=== PATIENT | female | born 1970 ===

== ENCOUNTER 2018-12-31 14:30 | Outpatient (CLI) | payer OTHER ==
--- NOTE | 2018-12-31 15:40 | MMO ---
Bilateral MAMMO Bilat Diag [facility]DI+ION. CLINICAL HISTORY: Patient is 48 years old and is seen for diagnostic exam and palpable abnormality in the left breast. The patient has the following family history of breast cancer: paternal grandmother, at age 45. The patient has no personal history of cancer. VIEWS: The views performed were: bilateral craniocaudal with tomosynthesis; bilateral mediolateral oblique with tomosynthesis; and bilateral mediolateral. FILMS COMPARED: The present examination has been compared to prior imaging studies performed at [facility] on 10/30/2005, 01/03/2007, 01/07/2007, 07/29/2009, 10/18/2010, 12/11/2011, 01/28/2013, 05/04/2016, 12/04/2017 and 12/31/2018. MAMMOGRAM FINDINGS: The breasts are heterogeneously dense, which could obscure a lesion on mammography. NO MAMMOGRAPHIC OR SONOGRAPHIC ABNORMALITIES ARE PRESENT TO CORRELATE WITH THE SITE OF PALPABLE CONCERN. There are no suspicious masses, suspicious calcifications, or new areas of architectural distortion. IMPRESSION: THERE IS NO MAMMOGRAPHIC EVIDENCE OF MALIGNANCY. NO MAMMOGRAPHIC OR SONOGRAPHIC ABNORMALITIES ARE PRESENT TO CORRELATE WITH THE SITE OF PALPABLE CONCERN. THE PATIENT WILL BE REFERRED BACK TO HER CLINICIAN FOR FURTHER CARE. BIOPSY SHOULD NOT BE PRECLUDED BY THE ABSCENCE OF IMAGING FINDINGS, IN THE SETTING OF CLINICAL CONCERN FOR MALIGNANCY. A ROUTINE FOLLOW-UP MAMMOGRAM IN 1 YEAR IS RECOMMENDED. THE RESULTS OF THIS EXAM WERE SENT TO THE PATIENT. ACR BI-RADS Category 2 - Benign finding MAMMOGRAPHY NOTE: 1. A negative mammogram report should not delay a biopsy if a dominant of clinically suspicious mass is present. 2. Approximately 10% to 15% of breast cancers are not detected by mammography. 3. Adenosis and dense breasts may obscure an underlying neoplasm.
--- NOTE | 2018-12-31 15:54 | ULT ---
DIAGNOSTIC LEFT BREAST ULTRASOUND: INDICATIONS: Palpable abnormality of the left lower inner breast. TECHNIQUE: Exam is performed in conjunction with diagnostic mammography. FINDINGS: Real-time sonographic imaging of the area of interest of the left breast reveals normal appearing ronen ast parenchyma. There is no mass, cyst, or other localizable pathology evident. IMPRESSION: BI-RADS 2-Benign findings. There is no mammographic or sonographic abnormality to account for the patient's palpable area of con cern. Therefore, the patient will be referred back to her clinician to undergo further clinical hitesh gement. Absence of imaging findings does not exclude the possibility of underlying neoplasm. As nec essary, imaging followup may be obtained, should findings not resolve as clinically expected. POS: OFF
== END 2018-12-31 14:31 | disposition home or self-care (01) ==
LOC: BICMAMMO 14:30
PROVIDERS: ATTEND Internal Medicine
DX: N63.20 Unspecified lump in the left breast, unspecified quadrant (principal); Z80.3 Family history of malignant neoplasm of breast
CPT/HCPCS: 77066; G0279